=== PATIENT | female | born 1935 | race Caucasian/White ===

== ENCOUNTER 2019-01-04 08:04 | Inpatient (IN) | payer MEDICARE, BC ==
[2019-01-04] MEDS ORDERED: ASPIRIN 81 MG CHEWABLE CTB PO STA (08:15)
[2019-01-04] MEDS ORDERED: SODIUM CHLORIDE 0.9% FLUSH 10 ML SOL IV PRN (08:15)
[2019-01-04] MEDS ORDERED: SODIUM CHLORIDE 0.9% 1000 ML SOL IV ONE (08:20)
[2019-01-04] MEDS ORDERED: ASPIRIN 81 MG CHEWABLE CTB ONE (08:20)
[2019-01-04] MEDS ORDERED: DILTIAZEM 5 MG/ML SOL IV ONE ×3 (08:20→10:01)
[2019-01-04] MEDS ORDERED: DILTIAZEM 5 MG/ML 125 MG in SODIUM CHLORIDE 0.9% 100 ML 100 ML IV SCH ×2 (08:30→10:15)
[2019-01-04] MEDS ORDERED: DILTIAZEM ER 120 MG C24 ONE (08:39)
[2019-01-04 08:40] LABS: BASOPHILS % (AUTO) 1 % (0-3); EOSINOPHILS % (AUTO) 2 % (0-9); HEMATOCRIT 41 % (35-47); HEMOGLOBIN 13.1 gm/dl (12.0-15.5); LYMPHOCYTES % (AUTO) 21.1 % (10-50); MEAN CORPUSCULAR HEMOGLOBIN 28.7 pg (27.0-32.0); MEAN CORPUSCULAR HGB CONC 31.9 gm/dl (32.0-36.0); MEAN CORPUSCULAR VOLUME 90 fL (81-99); MONOCYTES % (AUTO) 7.2 % (0-12); NEUTROPHILS % (AUTO) 68.3 % (37-80)
[2019-01-04 08:48] LABS: INR 0.95 (0.86-1.12)
[2019-01-04 08:55] LABS: ALBUMIN 3.4 gm/dl (3.4-5.0); ALKALINE PHOSPHATASE 84 IU/L (46-116); ALT 21 IU/L (14-63); AST 23 IU/L (15-37); BILIRUBIN,TOTAL 0.7 mg/dl (0.2-1.0); BLOOD UREA NITROGEN 21 mg/dl (7-18); CALCIUM 8.7 mg/dl (8.5-10.1); CARBON DIOXIDE 26.6 mEq/L (21-32); CHLORIDE 105 mMol/L (98-107); CREATININE 0.81 mg/dl (0.60-1.00); GLUCOSE 108 mg/dl (74-106); POTASSIUM 3.7 mMol/L (3.5-5.1); SODIUM 140 mMol/L (136-145); TOTAL PROTEIN 6.9 gm/dl (6.4-8.2); TROP I < 0.017 ng/ml (0.000-0.056)
[2019-01-04] MEDS ORDERED: DILTIAZEM ER 120 MG C24 PO SCH (09:00)
[2019-01-04] MEDS: SODIUM CHLORIDE 0.9% FLUSH 10 ML SOL IV SCH ×2 (11:57→20:12)
[2019-01-04 13:15] LABS: APPEARANCE,URINE Clear; BILIRUBIN,URINE NEGATIVE (NEGATIVE); COLOR,URINE Yellow; GLUCOSE, URINE (UA) NEGATIVE (NEGATIVE); KETONES,URINE NEGATIVE (NEGATIVE); LEUKOCYTE ESTERASE ,URINE TRACE (NEGATIVE); NITRATE,URINE NEGATIVE (NEGATIVE); OCCULT BLOOD,URINE NEGATIVE (NEG-TRACE); PH,URINE 5.5; UROBILINOGEN,URINE 0.2 (0.2-1.0 EU)
[2019-01-04 13:44] LABS: BACTERIA 1+ (< 1+); CRYSTALS NEGATIVE (0-3 AVE/HPF); EPITHELIAL CELLS 0-2 (SQUAMOUS)
[2019-01-04 16:07] LABS: THYROID STIMULATING HORMONE 1.981 uIU/ml (0.358-3.740); TROP I 0.03 ng/ml (0.000-0.056)
[2019-01-04] MEDS ORDERED: MELATONIN 3 MG TAB PO PRN ×2 (16:08→17:32)
[2019-01-04] MEDS ORDERED: ENOXAPARIN 40 MG SOL SC SCH (18:00)
[2019-01-04] MEDS: DORZOLAMIDE HCL EACHEYE SCH (20:12)
[2019-01-04] MEDS ORDERED: LATANOPROST 0.005% SOL OP SCH (21:00)
[2019-01-04] MEDS ORDERED: MELATONIN 10 MG PO ONE (22:33)
[2019-01-05 03:00] VITALS: RESP 20
[2019-01-05] MEDS: SODIUM CHLORIDE 0.9% FLUSH 10 ML SOL IV SCH ×2 (03:02→15:25)
[2019-01-05 07:29] LABS: ALBUMIN 2.7 gm/dl (3.4-5.0); BILIRUBIN,TOTAL 0.7 mg/dl (0.2-1.0); CALCIUM 8.3 mg/dl (8.5-10.1); CARBON DIOXIDE 25.9 mEq/L (21-32); CREATININE 0.68 mg/dl (0.60-1.00); POTASSIUM 3.7 mMol/L (3.5-5.1); TOTAL PROTEIN 5.6 gm/dl (6.4-8.2); TROP I 0.026 ng/ml (0.000-0.056)
[2019-01-05 07:30] LABS: BASOPHILS % (AUTO) 1 % (0-3); EOSINOPHILS % (AUTO) 2 % (0-9); HEMATOCRIT 33 % (35-47); HEMOGLOBIN 10.4 gm/dl (12.0-15.5); LYMPHOCYTES % (AUTO) 18.4 % (10-50); MEAN CORPUSCULAR HEMOGLOBIN 28.3 pg (27.0-32.0); MEAN CORPUSCULAR HGB CONC 31.8 gm/dl (32.0-36.0); MEAN CORPUSCULAR VOLUME 89 fL (81-99); MONOCYTES % (AUTO) 9.3 % (0-12)
[2019-01-05 07:38] LABS: INR 0.97 (0.86-1.12)
[2019-01-05 07:48] VITALS: TEMP 97.6; O2SAT 94
[2019-01-05] MEDS: DORZOLAMIDE HCL EACHEYE SCH (08:03)
[2019-01-05] MEDS ORDERED: ASPIRIN 325 MG TAB PO SCH (09:00)
[2019-01-05] MEDS ORDERED: DILTIAZEM ER 120 MG C24 PO SCH (09:00)
[2019-01-05] MEDS ORDERED: ASPIRIN EC 81 MG PO SCH (09:00)
[2019-01-05 11:43] VITALS: BP 104/58; PULSE 85
[2019-01-05] MEDS ORDERED: MELATONIN 10 MG PO SCH (21:00)
[2019-01-05] MEDS ORDERED: LATANOPROST 0.005% SOL OP SCH (21:00)
== END 2019-01-05 14:35 | disposition home or self-care (01) | DRG 310 ==
LOC: ED 08:04 → ACUTE CARE 09:15 → UNDOADMIN 09:15 → ACUTE CARE 09:34
PROVIDERS: ADMIT Emergency Medicine; ATTEND Emergency Medicine
DX: I48.91 Unspecified atrial fibrillation (principal); R11.2 Nausea with vomiting, unspecified; R42 Dizziness and giddiness; I48.0 Paroxysmal atrial fibrillation; R06.02 Shortness of breath
CPT/HCPCS: 36415; 71045; 80053; 81001; 83880; 84443; 84484; 85025; 85378; 85610; 87088; 93005; 93012; 93306; 96365; 96374; 99284; J1650; A9270-GY; J3490

== ENCOUNTER 2019-01-12 08:24 | Inpatient (IN) | payer MEDICARE, BC ==
[2019-01-12] MEDS ORDERED: ASPIRIN 81 MG CHEWABLE CTB PO STA (08:27)
[2019-01-12] MEDS ORDERED: NITROGLYCERIN 0.4 MG TAB SL PRN (08:27)
[2019-01-12 08:39] LABS: BASOPHILS % (AUTO) 1 % (0-3); EOSINOPHILS % (AUTO) 2 % (0-9); HEMATOCRIT 40 % (35-47); LYMPHOCYTES % (AUTO) 22.3 % (10-50); MEAN CORPUSCULAR HEMOGLOBIN 28.2 pg (27.0-32.0); MEAN CORPUSCULAR HGB CONC 32.3 gm/dl (32.0-36.0); MEAN CORPUSCULAR VOLUME 87 fL (81-99); MONOCYTES % (AUTO) 7.6 % (0-12); NEUTROPHILS % (AUTO) 66.6 % (37-80)
[2019-01-12 08:55] LABS: BLOOD UREA NITROGEN 13 mg/dl (7-18); CARBON DIOXIDE 28.9 mEq/L (21-32); CHLORIDE 98 mMol/L (98-107); CREATINE KINASE 53 U/L (26-192); CREATININE 0.85 mg/dl (0.60-1.00); GLUCOSE 110 mg/dl (74-106); POTASSIUM 4.1 mMol/L (3.5-5.1); SODIUM 135 mMol/L (136-145); TROP I < 0.017 ng/ml (0.000-0.056)
[2019-01-12] MEDS ORDERED: DILTIAZEM 5 MG/ML SOL IV ONE (11:23)
[2019-01-12] MEDS ORDERED: DILTIAZEM 5 MG/ML 125 MG in SODIUM CHLORIDE 0.9% 100 ML 100 ML IV SCH (11:30)
[2019-01-12] MEDS ORDERED: SODIUM CHLORIDE 0.9% 500 ML 500 ML IV ONE ×2 (11:37→13:42)
[2019-01-12] MEDS ORDERED: DIGOXIN 0.25 MG/ML SOL IV SCH (11:45)
[2019-01-12] MEDS: ENOXAPARIN 40 MG SOL SC SCH ×2 (11:51→23:39)
[2019-01-12] MEDS ORDERED: DORZOLAMIDE HCL 2% SOL EACHEYE SCH (14:15)
[2019-01-12] MEDS: SODIUM CHLORIDE 0.9% 1000ML 1,000 ML IV SCH (14:56)
[2019-01-12] MEDS: WARFARIN SODIUM 5 MG TAB PO SCH (17:36)
[2019-01-12] MEDS ORDERED: DIGOXIN 0.125 MG TAB PO SCH (18:00)
[2019-01-12] MEDS ORDERED: LOPERAMIDE HYDROCHLORIDE 2 MG CAP PO ONE (20:01)
[2019-01-12] MEDS: DORZOLAMIDE HCL 2% SOL OP SCH (20:15)
[2019-01-12] MEDS: LATANOPROST 0.005% SOL OP SCH (21:44)
[2019-01-13] MEDS: SODIUM CHLORIDE 0.9% 1000ML 1,000 ML IV SCH ×2 (00:30→15:02)
[2019-01-13 07:18] LABS: CALCIUM 8.3 mg/dl (8.5-10.1); CARBON DIOXIDE 26.8 mEq/L (21-32); CREATININE 0.69 mg/dl (0.60-1.00); POTASSIUM 3.8 mMol/L (3.5-5.1)
[2019-01-13] MEDS: DORZOLAMIDE HCL 2% SOL OP SCH ×2 (08:25→18:54)
[2019-01-13] MEDS: ENOXAPARIN 40 MG SOL SC SCH ×2 (12:37→23:01)
[2019-01-13] MEDS ORDERED: CARVEDILOL 3.125 MG TAB PO ONE ×2 (17:45→20:00)
[2019-01-13 18:29] LABS: INR 1.01 (0.86-1.12)
[2019-01-13] MEDS: WARFARIN SODIUM 5 MG TAB PO SCH (18:54)
[2019-01-13] MEDS ORDERED: TEMAZEPAM 15MG 15 MG CAP PO PRN (19:59)
[2019-01-13] MEDS: LATANOPROST 0.005% SOL OP SCH (20:25)
[2019-01-13] MEDS: MELATONIN 3 MG TAB PO PRN (20:25)
[2019-01-13] MEDS ORDERED: CARVEDILOL 3.125 MG TAB PO SCH (21:00)
[2019-01-13] MEDS: SODIUM CHLORIDE 0.9% FLUSH 10 ML SOL IV PRN (23:03)
[2019-01-14 07:29] LABS: CALCIUM 8.6 mg/dl (8.5-10.1); CARBON DIOXIDE 27.1 mEq/L (21-32); CREATININE 0.7 mg/dl (0.60-1.00)
[2019-01-14] MEDS: DORZOLAMIDE HCL 2% SOL OP SCH ×2 (08:31→17:54)
[2019-01-14] MEDS ORDERED: CARVEDILOL 3.125 MG TAB PO SCH ×2 (09:00)
[2019-01-14 09:59] LABS: INR 1.15 (0.86-1.12)
[2019-01-14] MEDS: ENOXAPARIN 40 MG SOL SC SCH ×2 (11:54→23:51)
[2019-01-14] MEDS ORDERED: CARVEDILOL 3.125 MG TAB PO ONE (13:00)
[2019-01-14] MEDS: WARFARIN SODIUM 5 MG TAB PO SCH (17:53)
[2019-01-14] MEDS ORDERED: METOPROLOL TARTRATE 25 MG TAB ONE (18:33)
[2019-01-14] MEDS: LATANOPROST 0.005% SOL OP SCH (20:12)
[2019-01-14] MEDS ORDERED: METOPROLOL TARTRATE 50 MG TAB PO SCH (21:00)
[2019-01-14] MEDS: MELATONIN 3 MG TAB PO PRN (21:37)
[2019-01-15 08:04] LABS: CALCIUM 8.7 mg/dl (8.5-10.1); CARBON DIOXIDE 30.6 mEq/L (21-32); CREATININE 0.79 mg/dl (0.60-1.00); DIGOXIN 0.4 ng/ml (0.9-2.0); POTASSIUM 4.2 mMol/L (3.5-5.1)
[2019-01-15 08:09] LABS: INR 1.9 (0.86-1.12)
[2019-01-15] MEDS ORDERED: METOPROLOL TARTRATE 25 MG TAB PO SCH (10:00)
[2019-01-15] MEDS: DORZOLAMIDE HCL 2% SOL OP SCH ×2 (10:12→19:38)
[2019-01-15] MEDS: ENOXAPARIN 40 MG SOL SC SCH ×2 (12:28→23:45)
[2019-01-15 12:33] VITALS: RESP 16
[2019-01-15] MEDS: WARFARIN SODIUM 5 MG TAB PO SCH (19:38)
[2019-01-15] MEDS: METOPROLOL TARTRATE 50 MG TAB PO SCH (21:24)
[2019-01-15] MEDS: LATANOPROST 0.005% SOL OP SCH (21:24)
[2019-01-15] MEDS: SODIUM CHLORIDE 0.9% FLUSH 10 ML SOL IV PRN (21:25)
[2019-01-15] MEDS: MELATONIN 3 MG TAB PO PRN (23:45)
[2019-01-16 07:32] VITALS: O2SAT 96
[2019-01-16 07:45] LABS: CALCIUM 8.3 mg/dl (8.5-10.1); CREATININE 0.74 mg/dl (0.60-1.00); POTASSIUM 4.1 mMol/L (3.5-5.1)
[2019-01-16 07:51] LABS: CARBON DIOXIDE 30.9 mEq/L (21-32)
[2019-01-16] MEDS: DORZOLAMIDE HCL 2% SOL OP SCH (07:52)
[2019-01-16] MEDS: METOPROLOL TARTRATE 50 MG TAB PO SCH (09:14)
[2019-01-16 09:40] VITALS: TEMP 97.7
[2019-01-16] MEDS: ENOXAPARIN 40 MG SOL SC SCH (11:32)
[2019-01-16 14:45] VITALS: BP 102/69; PULSE 102
== END 2019-01-16 15:25 | disposition home or self-care (01) | DRG 310 ==
LOC: ED 08:24 → UNDOADMIN 10:05 → ACUTE CARE 10:05
PROVIDERS: ADMIT Family Medicine; ATTEND Family Medicine
PROC: F01ZBZZ Bed Mobility Assessment (ICD-10-PCS; principal; 2019-01-15)
PROC: F01ZDFZ Gait and/or Balance Assessment using Assistive, Adaptive, Supportive or Protective Equipment (ICD-10-PCS; 2019-01-15)
DX: I48.2 Chronic atrial fibrillation (principal); R00.0 Tachycardia, unspecified; E03.9 Hypothyroidism, unspecified; R06.02 Shortness of breath
CPT/HCPCS: 36415; 71045; 80048; 80162; 82550; 84484; 85025; 85610; 93005; 93012; 94762; 99284; 99285; J1160; J1650; A9270-GY; J3490

== ENCOUNTER 2019-01-18 15:53 | Inpatient (IN) | payer MEDICARE, BC ==
[2019-01-18] MEDS ORDERED: MELATONIN 10 MG PO PRN (17:36)
[2019-01-18 17:44] LABS: BASOPHILS % (AUTO) 1 % (0-3); EOSINOPHILS % (AUTO) 1 % (0-9); HEMATOCRIT 38 % (35-47); HEMOGLOBIN 12.1 gm/dl (12.0-15.5); LYMPHOCYTES % (AUTO) 15.1 % (10-50); MEAN CORPUSCULAR HEMOGLOBIN 28.5 pg (27.0-32.0); MEAN CORPUSCULAR HGB CONC 32.1 gm/dl (32.0-36.0); MEAN CORPUSCULAR VOLUME 89 fL (81-99); MONOCYTES % (AUTO) 7.1 % (0-12); NEUTROPHILS % (AUTO) 75.7 % (37-80)
[2019-01-18] MEDS ORDERED: WARFARIN SODIUM 5 MG TAB PO SCH (18:00)
[2019-01-18 18:01] LABS: BLOOD UREA NITROGEN 16 mg/dl (7-18); CALCIUM 9.1 mg/dl (8.5-10.1); CARBON DIOXIDE 28.5 mEq/L (21-32); CHLORIDE 96 mMol/L (98-107); CREATININE 0.84 mg/dl (0.60-1.00); GLUCOSE 135 mg/dl (74-106); SODIUM 132 mMol/L (136-145)
[2019-01-18 18:02] LABS: TROP I < 0.017 ng/ml (0.000-0.056)
[2019-01-18 18:21] LABS: INR 7.18 (0.86-1.12)
[2019-01-18] MEDS: DILTIAZEM ER 120 MG C24 PO SCH (19:08)
[2019-01-18] MEDS: DORZOLAMIDE HCL 2% EACHEYE SCH (19:45)
[2019-01-18] MEDS ORDERED: SODIUM CHLORIDE 0.9% FLUSH 10 ML SOL IV PRN (20:00)
[2019-01-18] MEDS ORDERED: LUTEIN 6 MG PO SCH (21:00)
[2019-01-18] MEDS ORDERED: LATANOPROST 0.005% SOL OP SCH (21:00)
[2019-01-18 21:46] VITALS: O2SAT 98
[2019-01-18] MEDS: SODIUM CHLORIDE 0.9% FLUSH 10 ML SOL IV SCH (22:05)
[2019-01-19] MEDS: SODIUM CHLORIDE 0.9% FLUSH 10 ML SOL IV SCH (05:15)
[2019-01-19 07:58] LABS: INR 5.27 (0.86-1.12)
[2019-01-19 08:57] VITALS: BP 90/74; PULSE 125; RESP 16; TEMP 97.9
[2019-01-19] MEDS ORDERED: VITAMIN D PO SCH (09:00)
[2019-01-19] MEDS ORDERED: MULTIVITAMIN2 1 EA TAB PO SCH (09:00)
[2019-01-19] MEDS ORDERED: ASCORBIC ACID 500 MG TAB PO SCH (09:00)
[2019-01-19] MEDS: DILTIAZEM ER 120 MG C24 PO SCH (09:36)
[2019-01-19] MEDS: DORZOLAMIDE HCL 2% EACHEYE SCH (09:36)
[2019-01-19] MEDS ORDERED: LUTEIN 6 MG PO SCH (21:00)
[2019-01-20] MEDS ORDERED: WARFARIN SODIUM 2.5 MG TAB PO SCH (18:00)
== END 2019-01-19 10:50 | disposition short-term general hospital (02) | DRG 310 ==
LOC: ACUTE CARE 16:00
PROVIDERS: ADMIT Family Medicine; ATTEND Family Medicine
DX: I48.91 Unspecified atrial fibrillation (principal); Z79.01 Long term (current) use of anticoagulants; R06.02 Shortness of breath; R53.1 Weakness; E03.9 Hypothyroidism, unspecified
CPT/HCPCS: 36415; 80048; 84484; 85025; 85610; 93012; A9270-GY

== ENCOUNTER 2019-02-06 12:43 | Emergency (ER) | payer MEDICARE, BC ==
[2019-02-06 12:51] VITALS: TEMP 97.9
[2019-02-06 14:08] LABS: BASOPHILS % (AUTO) 2 % (0-3); EOSINOPHILS % (AUTO) 1 % (0-9); HEMATOCRIT 39 % (35-47); HEMOGLOBIN 12.2 gm/dl (12.0-15.5); LYMPHOCYTES % (AUTO) 18.2 % (10-50); MEAN CORPUSCULAR HEMOGLOBIN 27.7 pg (27.0-32.0); MEAN CORPUSCULAR HGB CONC 31.3 gm/dl (32.0-36.0); MEAN CORPUSCULAR VOLUME 88 fL (81-99); MONOCYTES % (AUTO) 6.9 % (0-12); NEUTROPHILS % (AUTO) 71.8 % (37-80)
[2019-02-06 14:15] LABS: CALCIUM 8.9 mg/dl (8.5-10.1); CARBON DIOXIDE 29.1 mEq/L (21-32); CREATININE 0.89 mg/dl (0.60-1.00); POTASSIUM 4.3 mMol/L (3.5-5.1)
[2019-02-06 14:38] VITALS: BP 143/81; PULSE 61; RESP 16; O2SAT 98
== END 2019-02-06 14:38 | disposition home or self-care (01) | DRG 310 ==
LOC: ED 12:43
DX: I48.91 Unspecified atrial fibrillation (principal); R06.02 Shortness of breath; R07.9 Chest pain, unspecified; R42 Dizziness and giddiness; Z79.01 Long term (current) use of anticoagulants; E03.9 Hypothyroidism, unspecified
CPT/HCPCS: 36415; 80048; 85025; 93005; 99283; 99284

== ENCOUNTER 2019-02-09 18:34 | Inpatient (IN) | payer MEDICARE, BC ==
[2019-02-09 19:42] LABS: BASOPHILS % (AUTO) 1 % (0-3); EOSINOPHILS % (AUTO) 1 % (0-9); HEMATOCRIT 44 % (35-47); HEMOGLOBIN 14.1 gm/dl (12.0-15.5); LYMPHOCYTES % (AUTO) 22.5 % (10-50); MEAN CORPUSCULAR HEMOGLOBIN 28.4 pg (27.0-32.0); MEAN CORPUSCULAR HGB CONC 32.1 gm/dl (32.0-36.0); MEAN CORPUSCULAR VOLUME 88 fL (81-99); NEUTROPHILS % (AUTO) 68.1 % (37-80)
[2019-02-09 19:53] LABS: INR 1.94 (0.86-1.12); LACTIC ACID 0.8 mMol/L (0.0-2.0)
[2019-02-09 20:07] LABS: ALBUMIN 3.6 gm/dl (3.4-5.0); ALKALINE PHOSPHATASE 87 IU/L (46-116); ALT 21 IU/L (14-63); AST 21 IU/L (15-37); BILIRUBIN,TOTAL 0.6 mg/dl (0.2-1.0); BLOOD UREA NITROGEN 26 mg/dl (7-18); CALCIUM 9.2 mg/dl (8.5-10.1); CARBON DIOXIDE 30.3 mEq/L (21-32); CHLORIDE 95 mMol/L (98-107); CREATININE 1.17 mg/dl (0.60-1.00); GLUCOSE 104 mg/dl (74-106); POTASSIUM 4.3 mMol/L (3.5-5.1); SODIUM 133 mMol/L (136-145); TROP I < 0.017 ng/ml (0.000-0.056)
[2019-02-09] MEDS ORDERED: SODIUM CHLORIDE 0.9% 1000ML 1,000 ML IV ONE (20:58)
[2019-02-09] MEDS ORDERED: WARFARIN SODIUM 2.5 MG TAB PO SCH (21:00)
[2019-02-09] MEDS: LATANOPROST 0.005% SOL OP SCH (22:56)
[2019-02-09] MEDS: Non-Formulary Medication MISC (Flecainide Acetate 50 mg) PO SCH (23:06)
[2019-02-10] MEDS: DORZOLAMIDE HCL EACHEYE SCH ×2 (00:24→09:17)
[2019-02-10] MEDS ORDERED: VITAMIN D PO SCH (09:00)
[2019-02-10] MEDS ORDERED: METOPROLOL SUCCINATE 25 MG TAB.ER.24H PO SCH (09:00)
[2019-02-10] MEDS ORDERED: METOPROLOL SUCCINATE 50 MG ER TAB ONE (09:14)
[2019-02-10] MEDS: FERROUS GLUCONATE 324 MG TABLET PO SCH (09:17)
[2019-02-10] MEDS: METOPROLOL SUCCINATE 50 MG ER TAB PO SCH (09:19)
[2019-02-10] MEDS: Non-Formulary Medication MISC (Flecainide Acetate 50 mg) PO SCH ×2 (09:22→21:20)
[2019-02-10 09:43] LABS: CALCIUM 8.4 mg/dl (8.5-10.1); CARBON DIOXIDE 27.5 mEq/L (21-32); CREATININE 0.92 mg/dl (0.60-1.00); POTASSIUM 3.6 mMol/L (3.5-5.1)
[2019-02-10] MEDS: CHOLECALCIFEROL 1,000 IU TAB PO SCH (11:07)
[2019-02-10] MEDS: SODIUM CHLORIDE 0.9% FLUSH 10 ML SOL IV SCH ×2 (12:25→19:29)
[2019-02-10] MEDS ORDERED: WARFARIN SODIUM 2.5 MG TAB PO SCH (18:00)
[2019-02-10] MEDS: DORZOLAMIDE HCL 2% SOL EACHEYE SCH ×2 (19:27→21:21)
[2019-02-10] MEDS: LATANOPROST 0.005% SOL OP SCH (21:20)
[2019-02-11] MEDS: SODIUM CHLORIDE 0.9% FLUSH 10 ML SOL IV SCH ×2 (05:31→12:05)
[2019-02-11 08:16] VITALS: RESP 18; TEMP 97.8
[2019-02-11] MEDS: FERROUS GLUCONATE 324 MG TABLET PO SCH (08:19)
[2019-02-11] MEDS: CHOLECALCIFEROL 1,000 IU TAB PO SCH (08:19)
[2019-02-11] MEDS: DORZOLAMIDE HCL 2% SOL EACHEYE SCH (08:20)
[2019-02-11] MEDS: Non-Formulary Medication MISC (Flecainide Acetate 50 mg) PO SCH (11:04)
[2019-02-11 11:18] VITALS: O2SAT 96
[2019-02-11 12:26] VITALS: BP 100/62; PULSE 70
[2019-02-11] MEDS: METOPROLOL SUCCINATE 50 MG ER TAB PO SCH (15:31)
[2019-02-12] MEDS ORDERED: PAROXETINE HYDROCHLORIDE 20 MG TAB PO SCH (09:00)
[2019-02-15] MEDS ORDERED: WARFARIN SODIUM 2.5 MG TAB PO SCH (18:00)
== END 2019-02-11 14:40 | disposition home or self-care (01) | DRG 948 ==
LOC: ED 18:34 → ACUTE CARE 20:47
PROVIDERS: ADMIT Family Medicine; ATTEND Family Medicine
DX: R53.1 Weakness (principal); E86.0 Dehydration; R06.02 Shortness of breath; E03.9 Hypothyroidism, unspecified; R63.4 Abnormal weight loss; I48.91 Unspecified atrial fibrillation; Z79.01 Long term (current) use of anticoagulants
CPT/HCPCS: 36415; 71045; 80048; 80053; 83880; 84484; 85025; 85610; 93005; 94150; 99222; 99284; A9270-GY

== ENCOUNTER 2019-02-11 19:52 | Emergency (ER) | payer MEDICARE, BC ==
[2019-02-11] MEDS ORDERED: ONDANSETRON 4 MG ODT ONE ×2 (20:13→23:03)
[2019-02-11] MEDS: SODIUM CHLORIDE 0.9% FLUSH 10 ML SOL IV PRN (20:48)
[2019-02-11] MEDS: SODIUM CHLORIDE 0.9% 1000ML 1,000 ML IV SCH ×2 (20:49→21:55)
[2019-02-11] MEDS ORDERED: ONDANSETRON 4 MG ODT BU ONE ×2 (20:50→22:54)
[2019-02-11] MEDS ORDERED: PROCHLORPERAZINE EDISYLATE 5 MG/ML SOL ONE ×2 (21:02→21:05)
[2019-02-11] MEDS ORDERED: PROCHLORPERAZINE EDISYLATE 5 MG/ML SOL IV ONE (21:11)
[2019-02-11 21:13] LABS: INFLUENZA A NEGATIVE (NEGATIVE); INFLUENZA B NEGATIVE (NEGATIVE)
[2019-02-12] MEDS ORDERED: PROCHLORPERAZINE EDISYLATE 5 MG/ML SOL IV ONE (00:37)
[2019-02-12] MEDS ORDERED: PROCHLORPERAZINE EDISYLATE 5 MG/ML SOL ONE (00:37)
[2019-02-12] MEDS: SODIUM CHLORIDE 0.9% FLUSH 10 ML SOL IV PRN (00:40)
[2019-02-12 03:07] VITALS: BP 125/68; PULSE 85; RESP 16; O2SAT 94
[2019-02-12 03:28] VITALS: TEMP 96.6
== END 2019-02-12 01:05 | disposition home or self-care (01) | DRG 392 ==
LOC: ED 19:52
DX: K52.9 Noninfective gastroenteritis and colitis, unspecified (principal); Z79.01 Long term (current) use of anticoagulants; R06.02 Shortness of breath
CPT/HCPCS: 87804; 96365; 96374; 99283; 99285; J0780; A9270-GY